=== PATIENT | male | born 1960 | race African-American/Black ===

== ENCOUNTER 2024-12-12 14:49 | Inpatient (IN) | payer OTHER ==
[~2024-12-12] VITALS: Ht 172.7 cm; Wt 81.0 kg
[2024-12-12] MEDS: SODIUM CHLORIDE 0.9% 1,000 ML IV ONE (15:57)
[2024-12-12 16:20] LABS: BASOPHILS % (AUTO) 0.4 % (0.0-2.0); HEMATOCRIT 44.8 % (41-53); HEMOGLOBIN 14.7 g/dL (13.5-17.5); LYMPHOCYTES # (AUTO) 1.6 K/uL (1.0-4.8); LYMPHOCYTES % (AUTO) 16.1 % (22.0-44.0); MEAN CORPUSCULAR HEMOGLOBIN 26.8 pg (26.0-34.0); MEAN CORPUSCULAR HGB CONC 32.9 G/dL (31.0-37.0); MEAN CORPUSCULAR VOLUME 82 fL (80-100); MONOCYTES # (AUTO) 0.9 K/uL (0.1-1.0); MONOCYTES % (AUTO) 9.7 % (2.0-9.0); NEUTROPHILS # (AUTO) 7.1 K/uL (1.8-7.7); NEUTROPHILS % (AUTO) 72.8 % (40.0-70.0); PLATELET COUNT (AUTO) 187 K/uL (150-450); RED BLOOD CELL COUNT(AUTO) 5.49 MIL/uL (4.50-5.90); RED CELL DISTRIBUTION WIDTH 15.8 % (11.5-14.5); WHITE BLOOD COUNT (AUTO) 9.8 K/uL (4.5-11.0)
[2024-12-12] MEDS ORDERED: ACETAMINOPHEN 325 MG TABLET PO PRN (16:30)
[2024-12-12 16:33] LABS: PROTHROMBIN TIME 10.4 SEC (9.4-11.6)
[2024-12-12 16:37] LABS: AMMONIA 11 umol/L (11-32); TROPONIN I-HIGH SENSITIVITY 11 ng/L (<76)
[2024-12-12 16:38] LABS: APPEARANCE,URINE CLEAR (CLEAR); BILIRUBIN,URINE NEGATIVE (NEGATIVE); COLOR,URINE LIGHT YELLOW (YELLOW); GLUCOSE, URINE (UA) NEGATIVE (NEGATIVE); KETONES,URINE NEGATIVE (NEGATIVE); LEUKOCYTE ESTERASE ,URINE NEGATIVE (NEGATIVE); NITRATE,URINE NEGATIVE (NEGATIVE); OCCULT BLOOD,URINE NEGATIVE (NEGATIVE); PH,URINE 6.5 (5.0-8.0); PROTEIN,URINE TRACE mg/dL (NEGATIVE); SPECIFIC GRAVITIY, URINE 1.014 (1.003-1.030); UROBILINOGEN,URINE <=1.0 mg/dL (<=1.0)
[2024-12-12 16:38] LABS: LACTIC ACID 1.8 mmol/L (0.4-2.0)
[2024-12-12 16:39] LABS: ANION GAP 7 mmol/L (8-16); CALCIUM, TOTAL 8.9 mg/dL (8.8-10.5); CARBON DIOXIDE 33 mmol/L (22-29); CHLORIDE 99 mmol/L (98-107); CREATININE 1.17 mg/dL (0.60-1.30); GLOMERULAR FILTR. RATE CALC > 60 mL/min (>60); GLUCOSE,RANDOM 91 mg/dL (70-110); POTASSIUM 3.3 mmol/L (3.5-5.1); SODIUM SERUM 139 mmol/L (136-145); UREA NITROGEN, BLOOD 15 mg/dL (7-18)
[2024-12-12 16:42] LABS: PH,URINE DRUG SCREEN 6.5 (5.0-8.0)
[2024-12-12 16:45] LABS: ALANINE AMINOTRANSFERASE 38 U/L (12-78); ALBUMIN 3.6 g/dL (3.4-5.0); ALKALINE PHOSPHATASE 115 U/L (46-116); ASPARTATE AMINOTRANSFERASE 19 U/L (15-37); BILIRUBIN,TOTAL 0.6 mg/dL (0.1-1.0); CREATINE KINASE, TOTAL ONLY 227 U/L (39-308); TOTAL PROTEIN, SERUM 7.8 g/dL (6.4-8.2)
[2024-12-12 16:47] LABS: AMPHET/METH SCREEN,URINE NEGATIVE (NEGATIVE); BARBITURATE SCREEN, URINE NEGATIVE (NEGATIVE); BENZODIAZEPINES SCREEN,URINE NEGATIVE (NEGATIVE); CANNABINOID SCREEN,URINE NEGATIVE (NEGATIVE); COCAINE SCREEN,URINE NEGATIVE (NEGATIVE); METHADONE SCREEN, URINE NEGATIVE (NEGATIVE); OPIATE SCREEN,URINE NEGATIVE (NEGATIVE); PHENCYCLIDINE SCREEN,URINE NEGATIVE (NEGATIVE)
[2024-12-12 16:50] LABS: COVID AG,FIA SOURCE NASAL SWAB
[2024-12-12 16:51] LABS: ALCOHOL, URINE DRUG SCREEN NEGATIVE (NEGATIVE)
[2024-12-12] MEDS ORDERED: INSULIN LISPRO 100 UNITS/ML SQ PRN (17:00)
[2024-12-12] MEDS ORDERED: DEXTROSE 50%-WATER 25 GM/50 ML SYRINGE IVP PRN (17:00)
[2024-12-12 17:11] LABS: SARS-COV2 (COVID) ANTIGEN,FIA Negative (Negative)
[2024-12-12 17:12] LABS: INFLUENZA TYPE A NEGATIVE FOR TYPE A (NEGATIVE); INFLUENZA TYPE B NEGATIVE FOR TYPE B (NEGATIVE)
[2024-12-12] MEDS: DOCUSATE SODIUM 100 MG CAPSULE PO SCH (20:13)
[2024-12-12] MEDS: HEPARIN SODIUM,PORCINE 5,000 UNITS/ML VIAL SQ SCH (23:21)
[2024-12-13 08:31] VITALS: BP 142/97; PULSE 69; RESP 19; TEMP 98.3; O2SAT 98
[2024-12-13] MEDS: FAMOTIDINE 20 MG TABLET PO SCH (08:45)
[2024-12-13] MEDS ORDERED: AMLO10TA55 PO (09:08)
[2024-12-13] MEDS ORDERED: ATOR-2 PO (09:08)
[2024-12-13] MEDS ORDERED: LOSA-30 PO (09:08)
[2024-12-13 11:24] VITALS: BP 133/74; PULSE 66; RESP 18; TEMP 97.7; O2SAT 97
[2024-12-13 13:45] LABS: GLUCOMETER DEV NAME(LOC) 5N.2C; GLUCOSE,POINT OF CARE 88 MG/DL (70-110)
[2024-12-13 14:49] VITALS: BP 147/81; PULSE 61; RESP 18; TEMP 97.7; O2SAT 99
[2024-12-14] MEDS ORDERED: AmLODIPine BESYLATE 10 MG TABLET PO SCH (09:00)
[2024-12-14] MEDS ORDERED: HYDROCHLOROTHIAZIDE 25 MG TABLET PO SCH (09:00)
[2024-12-14] MEDS ORDERED: LOSARTAN POTASSIUM 50 MG TABLET PO SCH (09:00)
[2024-12-14] MEDS ORDERED: ATORVASTATIN CALCIUM 40 MG TABLET PO SCH (09:00)
== END 2024-12-13 18:00 | disposition home or self-care (01) | DRG 48 ==
LOC: EMS 14:49 → EDBD 16:29 → EDH 16:29 → 5S 12-13 08:31
PROVIDERS: ADMIT Internal Medicine; ATTEND Internal Medicine
DX: G90.89 Other disorders of autonomic nervous system (principal); E78.00 Pure hypercholesterolemia, unspecified; E87.6 Hypokalemia; I10 Essential (primary) hypertension; R73.03 Prediabetes; Z20.822 Contact with and (suspected) exposure to COVID-19
CPT/HCPCS: 70450; 71045; 80048; 80076; 80307; 81003; 82140; 82550; 82962; 83605; 84484; 85025; 85610; 85730; 87040; 87804; 93005; 93306; 93880; 99285; G0378; J1644; 36415-L1; 36415-TC